=== PATIENT | female | born 1955 | race Caucasian/White ===

== ENCOUNTER 2018-04-14 13:21 | Emergency (ER) | payer SELFPAY ==
[~2018-04-14] VITALS: Ht 160 cm; Wt 89.8 kg
--- NOTE | 2018-04-14 14:12 | PHYS DOC ---
Adult General Chief Complaint Chief Complaint: LACERATION/AVULSION HPI HPI Patient is a 63 year old female who presents with right middle finger laceration. Patient states she was using a seafood preparer today when the blade somehow came apart and flew out of the seafood preparer striking her in the right middle finger. She sustained laceration to the finger. No additional injuries. She is uncertain when her last tetanus shot was. Review of Systems Review of Systems Constitutional: Denies fever Eyes: Denies change in visual acuity HENT: Denies nasal congestion Respiratory: Denies cough or shortness of breath Cardiovascular: No additional information not addressed in HPI GI: Denies abdominal pain Integument: Denies rash Neurologic: Denies headache All other systems were reviewed and found to be within normal limits, except as documented in this note. Current Medications Current Medications Current Medications Medications (Trade) Dose Ordered Sig/Daniel Start Time Stop Time Status Last Admin Dose Admin Cephalexin HCl (Keflex) 500 mg 1X ONCE 04/14/18 15:00 04/14/18 15:01 DC 04/14/18 14:57 500 MG Diphtheria/ Tetanus/Acell Pertussis (Boostrix) 0.5 ml ONCE ONCE 04/14/18 14:30 04/14/18 14:31 DC 04/14/18 14:54 0.5 ML Lidocaine HCl (Lidocaine 1% 20ml Vial) 20 ml 1X ONCE 04/14/18 14:15 04/14/18 14:16 DC 04/14/18 14:12 20 ML Allergies Allergies Allergies Coded Allergies Type Severity Reaction Last Updated Verified codeine Allergy Intermediate RASH 04/14/18 Yes latex Allergy Intermediate RASH 04/14/18 Yes Physical Exam Physical Exam Constitutional: Well developed, well nourished, no acute distress HENT: Normocephalic, atraumatic Neck: Normal range of motion Cardiovascular:Heart rate regular rhythm, no murmur Lungs & Thorax: Bilateral breath sounds clear to auscultation Skin: Warm, dry, no erythema, no rash Extremities: Laceration over distal aspect of the right middle finger. Capillary refill distally is less than 2 seconds. Sensation light touch is intact. All flexor and extensor mechanisms are also intact. Neurologic: Alert and oriented X 3 Psychologic: Affect normal Current Patient Data Vital Signs Vital Signs Date Time Temp Pulse Resp B/P (MAP) Pulse Ox O2 Delivery O2 Flow Rate FiO2 04/14/18 14:22 98.1 77 18 174/78 (110) 98 Room Air 98.1 EKG EKG [] Radiology/Procedures Radiology/Procedures [] Course & Med Decision Making Course & Med Decision Making Pertinent Labs and Imaging studies reviewed. (See chart for details) Patient is evaluated immediately on arrival to her room. She has laceration described above. Orders are placed for x-ray. Plan is to do a digital block and laceration repair. 14:40: Tiny fracture of the distal phalanx is noted on x-ray. The patient is given a dose of Keflex. She is discharged home after laceration repair. See the procedure note below. Advised to come back to the ER in 10-14 days to have sutures removed. Wound care was also discussed. The patient already has pain medications at home that she can use as needed. Tetanus booster was given in the ER. Procedure note: Laceration right middle finger. The entire finger was cleansed with iodine. 5 total milliliters of 1% lidocaine was used to provide local anesthesia via a digital block which was successful. A total of 9 simple interrupted sutures were placed using 4-0 nylon. The patient tolerated well. Dragon Disclaimer Dragon Disclaimer This electronic medical record was generated, in whole or in part, using a voice recognition dictation system. Departure Departure Disposition: 01 HOME, SELF-CARE Condition: GOOD Referrals: MARGA HESS MD (PCP) Scripts Cephalexin (KEFLEX) 500 Mg Capsule 500 MG PO QID for 10 Days, #40 CAP Prov: ABELARDO SANDHU DO 04/14/18 ABELARDO SANDHU DO Apr 14, 2018 14:11
[2018-04-14] MEDS ORDERED: LIDOCAINE 1% Multi-Dose 20 ML VIAL. INJ ONE (14:15)
[2018-04-14 14:22] VITALS: BP 174/78
[2018-04-14] MEDS ORDERED: DIPHTH,PERTUSS(ACELL),TET TOX 0.5 ML DISP.SYRIN. VAX IM ONE (14:30)
--- NOTE | 2018-04-14 14:36 | RAD ---
AP view right hand, 2 view 3rd right finger 04/14/2018 CLINICAL INDICATION: Laceration to the lateral aspect of the right 3rd digit. COMPARISON: None. FINDINGS: Tiny minimally displaced fracture at the radial aspect of the base 3rd distal phalanx. No definite intra-articular extension. Soft tissue swelling at the distal 3rd digit. IMPRESSION: Minimally displaced fracture at the base of the 3rd distal phalanx. Electronically signed by: Clement Brink MD (04/14/2018 2:33 PM) [facility]
[2018-04-14] MEDS ORDERED: CEPH-264 PO (14:55)
[2018-04-14] MEDS ORDERED: CEPHALEXIN 250 MG CAPSULE. PO ONE (15:00)
== END 2018-04-14 15:08 | disposition home or self-care (01) ==
LOC: ER 13:21
DX: S61.212A Laceration without foreign body of right middle finger without damage to nail, initial encounter (principal); Z88.5 Allergy status to narcotic agent; Z91.040 Latex allergy status; W26.8XXA Contact with other sharp object(s), not elsewhere classified, initial encounter; Y93.G3 Activity, cooking and baking; Y92.89 Other specified places as the place of occurrence of the external cause; Y99.8 Other external cause status
CPT/HCPCS: 12001; 73140; 90471; 90715; 99283

== ENCOUNTER 2019-08-03 22:49 | Inpatient (IN) | payer MEDICARE ==
[~2019-08-03] VITALS: Ht 160 cm; Wt 89.8 kg
[~2019-08-03 22:49] MED LIST: CEPH-264 PO
--- NOTE | 2019-08-03 23:42 | PHYS DOC ---
Past Medical History Past Medical History: Arthritis, Diabetes-Type II, Hypertension Past Surgical History: Tonsillectomy, Other Additional Past Surgical Histo: KNEE REPAIR Smoking Status: Never Smoker Alcohol Use: None Drug Use: None Adult General Chief Complaint Chief Complaint: WEAKNESS/GENERALIZED HPI HPI 64-year-old female with underlying history of hypertension, diabetes presents to the emergency department with slurred speech that has subsequently resolved. Patient states around 10 PM she took her insulin went to dinner with her states she had difficulty speaking with what she describes as expressive aphasia, states she was unable to facility getting words out however she knew what she wanted to say. This apparently lasted 15 minutes, symptoms resolved prior to her arrival to the emergency department. Patient denies any unilateral weakness, states speech difficulty currently. Her NIH is 0. Patient states she takes no blood thinning medications, no history of CVA. Pressures currently 200 systolically. Nothing makes her symptoms worse, nothing makes her symptoms better. Review of Systems Review of Systems Constitutional: Denies fever or chills [] Respiratory: Denies cough or shortness of breath [] Cardiovascular: No additional information not addressed in HPI [] GI: Denies abdominal pain, nausea, vomiting, bloody stools or diarrhea [] : Denies dysuria or hematuria [] Musculoskeletal: Denies back pain or joint pain [] Integument: Denies rash or skin lesions [] Neurologic: Denies headache, focal weakness or sensory changes [] All other systems were reviewed and found to be within normal limits, except as documented in this note. Allergies Allergies Allergies Coded Allergies Type Severity Reaction Last Updated Verified codeine Allergy Intermediate RASH 04/14/18 Yes latex Allergy Intermediate RASH 04/14/18 Yes Physical Exam Physical Exam Constitutional: Well developed, well nourished, no acute distress, non-toxic appearance. [] HENT: Normocephalic, atraumatic, bilateral external ears normal, oropharynx moist, no oral exudates, nose normal. [] Eyes: PERRLA, EOMI, conjunctiva normal, no discharge. [] Cardiovascular:Heart rate regular rhythm, no murmur [] Lungs & Thorax: Bilateral breath sounds clear to auscultation [] Abdomen: Bowel sounds normal, soft, no tenderness, no masses, no pulsatile masses. [] Skin: Warm, dry, no erythema, no rash. [] Back: No tenderness, no CVA tenderness. [] Extremities: No tenderness, no edema. [] Neurologic: Alert and oriented X 3, no focal deficits noted. [] Psychologic: Affect normal, judgement normal, mood normal. [] Current Patient Data Lab Values Laboratory Tests Test 08/03/19 23:29 White Blood Count 7.8 x10^3/uL (4.0-11.0) Red Blood Count 4.67 x10^6/uL (3.50-5.40) Hemoglobin 14.4 g/dL (12.0-15.5) Hematocrit 41.0 % (36.0-47.0) Mean Corpuscular Volume 88 fL (79-100) Mean Corpuscular Hemoglobin 31 pg (25-35) Mean Corpuscular Hemoglobin Concent 35 g/dL (31-37) Red Cell Distribution Width 13.3 % (11.5-14.5) Platelet Count 290 x10^3/uL (140-400) Neutrophils (%) (Auto) 60 % (31-73) Lymphocytes (%) (Auto) 29 % (24-48) Monocytes (%) (Auto) 7 % (0-9) Eosinophils (%) (Auto) 2 % (0-3) Basophils (%) (Auto) 1 % (0-3) Neutrophils # (Auto) 4.7 x10^3/uL (1.8-7.7) Lymphocytes # (Auto) 2.3 x10^3/uL (1.0-4.8) Monocytes # (Auto) 0.6 x10^3/uL (0.0-1.1) Eosinophils # (Auto) 0.2 x10^3/uL (0.0-0.7) Basophils # (Auto) 0.1 x10^3/uL (0.0-0.2) Prothrombin Time 12.9 SEC (11.7-14.0) Prothrombin Time INR 1.0 (0.8-1.1) Sodium Level 135 mmol/L (136-145) L Potassium Level 4.3 mmol/L (3.5-5.1) Chloride Level 101 mmol/L (98-107) Carbon Dioxide Level 25 mmol/L (21-32) Anion Gap 9 (6-14) Blood Urea Nitrogen 18 mg/dL (7-20) Creatinine 0.8 mg/dL (0.6-1.0) Estimated GFR (Cockcroft-Gault) 72.0 BUN/Creatinine Ratio 23 (6-20) H Glucose Level 300 mg/dL (70-99) H Calcium Level 8.7 mg/dL (8.5-10.1) Total Bilirubin 0.6 mg/dL (0.2-1.0) Aspartate Amino Transferase (AST) 26 U/L (15-37) Alanine Aminotransferase (ALT) 25 U/L (14-59) Alkaline Phosphatase 115 U/L (46-116) Total Protein 6.8 g/dL (6.4-8.2) Albumin 3.5 g/dL (3.4-5.0) Albumin/Globulin Ratio 1.1 (1.0-1.7) Laboratory Tests 08/03/19 23:29 Laboratory Tests 08/03/19 23:29 EKG EKG [] Radiology/Procedures Radiology/Procedures [facility] [address] [place] [address] IMAGING REPORT Signed PATIENT: YENY STUART ACCOUNT: [id number] : 1955 LOCATION: ER AGE: 64 SEX: F EXAM STATUS: REG ER ORD. PHYSICIAN: ISAÍAS STALLWORTH MD REASON: slurred speech PROCEDURE: CT HEAD WO CONTRAST CT brain without contrast. HISTORY: Slurred speech CT scan of brain was done without contrast. There is no intracranial hemorrhage or subdural hematoma. There is no mass or shift of the midline. Ventricles are normal in size. There is decreased density in the might white matter likely microvascular ischemic changes although there is some asymmetry more decreased density in the white matter on the left than on the right, an early white matter infarct cannot be excluded. MRI could be of benefit. IMPRESSION: 1. No intracranial hemorrhage. 2. Subtle decreased density in the frontal parietal white matter on the left compared to the right. MRI could be of benefit. PQRS Compliance Statement: One or more of the following individualized dose reduction techniques were utilized for this examination: 1. Automated exposure control 2. Adjustment of the mA and/or kV according to patient size 3. Use of iterative reconstruction technique Electronically signed by: Med Bell MD (08/04/2019 12:14 AM) [id number] DICTATED and SIGNED BY: MED BELL MD DATE: 08/04/19 0014 [] Course & Med Decision Making Course & Med Decision Making Pertinent Labs and Imaging studies reviewed. (See chart for details) []64-year-old female with underlying history of hypertension, diabetes presents to the emergency department with slurred speech that has subsequently resolved. Patient states around 10 PM she took her insulin went to dinner with her states she had difficulty speaking with what she describes as expressive aphasia, states she was unable to facility getting words out however she knew what she wanted to say. This apparently lasted 15 minutes, symptoms resolved prior to her arrival to the emergency department. Patient denies any unilateral weakness, states speech difficulty currently. Her NIH is 0. Patient states she takes no blood thinning medications, no history of CVA. Pressures currently 200 systolically. Nothing makes her symptoms worse, nothing makes her symptoms better. Labs/Imaging reviewed NIHSS 0 CT reviewed - abnormal no bleed ABCD2 Score - 5 (moderate risk) Discussed admit with patient/family Neurology consultation - likely will need MRI and further evaluation Dragon Disclaimer Dragon Disclaimer This electronic medical record was generated, in whole or in part, using a voice recognition dictation system. NIHSS Stroke Scale NIH Stroke Scale: NIH Stroke Scale Response (Comments) Value Level of Consciousness: 0 Alert/Responsive 0 LOC Questions: 0 Answers both correctly 0 LOC Commands: 0 Performs both tasks 0 Best Gaze: 0 Normal 0 Visual: 0 No visual loss 0 Facial Palsy: 0 Normal, symmetrical 0 Motor - Left Arm 0 No drift 0 Motor - Right Arm 0 No drift 0 Motor - Left Leg 0 No drift 0 Motor: Right Leg 0 No drift 0 Limb Ataxia: 0 Absent 0 Sensory: 0 No loss 0 Best Language: 0 Normal 0 Dysathria: 0 Normal 0 Extinction and Inattention: 0 Normal 0 Total 0 Departure Departure Impression: Primary Impression: TIA (transient ischemic attack) Additional Impressions: Diabetes Abnormal head CT Condition: IMPROVED Referrals: MARGA HESS MD (PCP) Problem Qualifiers Additional Impressions: Diabetes Diabetes mellitus type: type 1 Diabetes mellitus complication status: without complication Qualified Codes: E10.9 - Type 1 diabetes mellitus without complications ISAÍAS STALLWORTH MD Aug 03, 2019 23:42
[2019-08-03 23:52] LABS: BASO # 0.1 x10^3/uL (0.0-0.2); BASO % 1 % (0-3); EOS # 0.2 x10^3/uL (0.0-0.7); EOS % 2 % (0-3); HEMOGLOBIN 14.4 g/dL (12.0-15.5); LYMPH # 2.3 x10^3/uL (1.0-4.8); LYMPH % 29 % (24-48); MEAN CORPUSCULAR HEMOGLOBIN 31 pg (25-35); MEAN CORPUSCULAR HGB CONC 35 g/dL (31-37); MEAN CORPUSCULAR VOLUME 88 fL (79-100); MONO # 0.6 x10^3/uL (0.0-1.1); MONO % 7 % (0-9); NEUT # 4.7 x10^3/uL (1.8-7.7); NEUT % 60 % (31-73); PLATELET COUNT 290 x10^3/uL (140-400); RED BLOOD COUNT 4.67 x10^6/uL (3.50-5.40); RED CELL DISTRIBUTION WIDTH 13.3 % (11.5-14.5); WHITE BLOOD COUNT 7.8 x10^3/uL (4.0-11.0)
[2019-08-03 23:59] LABS: CALCIUM 8.7 mg/dL (8.5-10.1); CREATININE 0.8 mg/dL (0.6-1.0); POTASSIUM 4.3 mmol/L (3.5-5.1)
[2019-08-04 00:01] LABS: PROTHROMBIN TIME PATIENT 12.9 SEC (11.7-14.0)
[2019-08-04 00:05] LABS: ALBUMIN 3.5 g/dL (3.4-5.0); ALBUMIN/GLOBULIN RATIO 1.1 (1.0-1.7); TOTAL BILIRUBIN 0.6 mg/dL (0.2-1.0); TOTAL PROTEIN 6.8 g/dL (6.4-8.2)
--- NOTE | 2019-08-04 00:17 | RAD ---
CT brain without contrast. HISTORY: Slurred speech CT scan of brain was done without contrast. There is no intracranial hemorrhage or subdural hematoma. There is no mass or shift of the midline. Ventricles are normal in size. There is decreased density in the might white matter likely microvascular ischemic changes although there is some asymmetry more decreased density in the white matter on the left than on the right, an early white matter infarct cannot be excluded. MRI could be of benefit. IMPRESSION: 1. No intracranial hemorrhage. 2. Subtle decreased density in the frontal parietal white matter on the left compared to the right. MRI could be of benefit. PQRS Compliance Statement: One or more of the following individualized dose reduction techniques were utilized for this examination: 1. Automated exposure control 2. Adjustment of the mA and/or kV according to patient size 3. Use of iterative reconstruction technique Electronically signed by: Med Bell MD (08/04/2019 12:14 AM) [id number]
[2019-08-04] MEDS ORDERED: ONDANSETRON PF 4 MG/2 ML VIAL. IV PRN (01:45)
[2019-08-04] MEDS ORDERED: ACETAMINOPHEN 325 MG TABLET. PO PRN ×2 (01:45→08:30)
--- NOTE | 2019-08-04 02:00 | NUR ---
pt admitted via cart from ER with admission diagnosis of TIA/Abnormal head CT Scan diabetes patient alert and oriented patient stated right now she live in a car with trying to find a home use to live and take care of austitic person but the cousin asked them to leave they trying to find a home pt refused flu shot dont do it for years stated no preferred pharmacy caused she canvas whatever is the more affortable one.
[2019-08-04 03:29] VITALS: BP 173/79
[2019-08-04] MEDS ORDERED: LISI-130 PO (04:13)
[2019-08-04] MEDS ORDERED: OXYC1TAB15 PO (04:19)
[2019-08-04] MEDS ORDERED: INSU100I13 SQ (04:22)
[2019-08-04] MEDS ORDERED: INSU100V2 SQ (04:47)
[2019-08-04 07:00] VITALS: BP 173/80
[2019-08-04] MEDS ORDERED: ACETAMINOPHEN 650 MG SUPP.RECT. PR PRN (08:30)
[2019-08-04] MEDS ORDERED: IPRATRPIUM/ALBUTEROL 0.5/2.5MG 3 ML NEBU. NEB PRN (08:45)
--- NOTE | 2019-08-04 09:08 | PDOC1 ---
History and Physical Date of Admission Date of Admission 08/04/2019 Identification/Chief Complaint Chief Complaint I could not speak Source Source: Chart review History of Present Illness History of Present Illness Patient is a 64-year-old female with past medical history of diabetes who was in her usual state of health until the evening prior to her admission when while having dinner with her she had taken her usual insulin dose and was eating appropriately and she suddenly developed inability to communicate. The relates that the patient was trying to formulate words and she was unable to do so. He prompted her to go to the emergency department and he was able to load her out in the vehicle make sure her seatbelt was on and was brought to the emergency department for evaluation. On the way to the emergency department her symptoms had abated and she had a 0 INH score. Initial work-up in the ER was unremarkable. Due to her comorbidities and her ABCD score we were asked to admit the patient for TIA work-up. The patient has not had any changes to her medications recently she denies any recent illnesses no headache no blurred vision no slurred speech was reported no hemiparesis no hemiplegia no cranial nerves dysfunction were noticed either. Of note is that the patient apparently from the social standpoint of view is currently homeless with living in a vehicle with her . She woke up couple days ago with a neck discomfort but she denies fevers or chills. No sick contacts have been reported. Patient denies palpitations no shortness of breath no paroxysmal nocturnal dyspnea no angina type of symptoms no nausea vomiting diarrhea no urinary symptoms were reported either. At the time my evaluation the patient has neurological normal exam. Plan of care has been explained detail to the patient and her who is at bedside. Past Medical History Cardiovascular: HTN Endocrine: Diabetes Current Problem List Problem List Problems Medical Problems: (1) Abnormal head CT Status: Acute (2) Diabetes Status: Acute (3) TIA (transient ischemic attack) Status: Acute Current Medications Current Medications Current Medications Medications (Trade) Dose Ordered Sig/Daniel Start Time Stop Time Status Last Admin Dose Admin Acetaminophen (Tylenol Supp) 650 mg PRN Q4HRS PRN 08/04/19 08:30 Acetaminophen (Tylenol) 650 mg PRN Q6HRS PRN 08/04/19 08:30 Albuterol/ Ipratropium (Duoneb) 3 ml PRN Q4HRS PRN 08/04/19 08:45 Aspirin (Children'S Aspirin) 81 mg [id number] 08/04/19 09:00 Ondansetron HCl (Zofran) 4 mg PRN Q8HRS PRN 08/04/19 01:45 08/05/19 01:44 Allergies Allergies Allergies Coded Allergies Type Severity Reaction Last Updated Verified codeine Allergy Intermediate RASH 04/14/18 Yes latex Allergy Intermediate RASH 04/14/18 Yes ROS Review of System CONSTITUTIONAL: No fever or chills EYES: No recent changes SKIN: No rash or itching CARDIOVASCULAR: No chest pain, syncope, palpitations, or edema RESPIRATORY: No SOB or cough GASTROINTESTINAL: No nausea, vomiting or abdominal pain NEUROLOGICAL: No headaches or weakness ENDOCRINE: No cold or heat intolerance GENITOURINARY: No urgency or frequency of urination MUSCULOSKELETAL: No back pain or joint pain LYMPHATICS: No enlarged lymph nodes PSYCHIATRIC: No anxiety or depression Physical Exam Physical Exam GEN.: No apparent distress. Alert and oriented. HEENT: Head is normocephalic, atraumatic NECK: Supple. LUNGS: Clear to auscultation. HEART: RRR, S1, S2 present. Peripheral pulses intact ABDOMEN: Soft, nontender. Positive bowel sounds. EXTREMITIES: Without any cyanosis. NEUROLOGIC: Normal speech, normal tone PSYCHIATRIC: Normal affect, normal mood. SKIN: No ulcerations Vitals Vitals Vital Signs Date Time Temp Pulse Resp B/P (MAP) Pulse Ox O2 Delivery O2 Flow Rate FiO2 08/04/19 07:00 97.8 79 16 173/80 (111) 97 Room Air 97.8 Labs Labs Laboratory Tests Test 08/03/19 23:29 08/04/19 08:03 White Blood Count 7.8 x10^3/uL (4.0-11.0) Red Blood Count 4.67 x10^6/uL (3.50-5.40) Hemoglobin 14.4 g/dL (12.0-15.5) Hematocrit 41.0 % (36.0-47.0) Mean Corpuscular Volume 88 fL (79-100) Mean Corpuscular Hemoglobin 31 pg (25-35) Mean Corpuscular Hemoglobin Concent 35 g/dL (31-37) Red Cell Distribution Width 13.3 % (11.5-14.5) Platelet Count 290 x10^3/uL (140-400) Neutrophils (%) (Auto) 60 % (31-73) Lymphocytes (%) (Auto) 29 % (24-48) Monocytes (%) (Auto) 7 % (0-9) Eosinophils (%) (Auto) 2 % (0-3) Basophils (%) (Auto) 1 % (0-3) Neutrophils # (Auto) 4.7 x10^3/uL (1.8-7.7) Lymphocytes # (Auto) 2.3 x10^3/uL (1.0-4.8) Monocytes # (Auto) 0.6 x10^3/uL (0.0-1.1) Eosinophils # (Auto) 0.2 x10^3/uL (0.0-0.7) Basophils # (Auto) 0.1 x10^3/uL (0.0-0.2) Prothrombin Time 12.9 SEC (11.7-14.0) Prothromb Time International Ratio 1.0 (0.8-1.1) Sodium Level 135 mmol/L (136-145) Potassium Level 4.3 mmol/L (3.5-5.1) Chloride Level 101 mmol/L (98-107) Carbon Dioxide Level 25 mmol/L (21-32) Anion Gap 9 (6-14) Blood Urea Nitrogen 18 mg/dL (7-20) Creatinine 0.8 mg/dL (0.6-1.0) Estimated GFR (Cockcroft-Gault) 72.0 BUN/Creatinine Ratio 23 (6-20) Glucose Level 300 mg/dL (70-99) Calcium Level 8.7 mg/dL (8.5-10.1) Total Bilirubin 0.6 mg/dL (0.2-1.0) Aspartate Amino Transf (AST/SGOT) 26 U/L (15-37) Alanine Aminotransferase (ALT/SGPT) 25 U/L (14-59) Alkaline Phosphatase 115 U/L (46-116) Total Protein 6.8 g/dL (6.4-8.2) Albumin 3.5 g/dL (3.4-5.0) Albumin/Globulin Ratio 1.1 (1.0-1.7) Glucose (Fingerstick) 348 mg/dL (70-99) Laboratory Tests Test 08/03/19 23:29 08/04/19 08:03 White Blood Count 7.8 x10^3/uL (4.0-11.0) Red Blood Count 4.67 x10^6/uL (3.50-5.40) Hemoglobin 14.4 g/dL (12.0-15.5) Hematocrit 41.0 % (36.0-47.0) Mean Corpuscular Volume 88 fL (79-100) Mean Corpuscular Hemoglobin 31 pg (25-35) Mean Corpuscular Hemoglobin Concent 35 g/dL (31-37) Red Cell Distribution Width 13.3 % (11.5-14.5) Platelet Count 290 x10^3/uL (140-400) Neutrophils (%) (Auto) 60 % (31-73) Lymphocytes (%) (Auto) 29 % (24-48) Monocytes (%) (Auto) 7 % (0-9) Eosinophils (%) (Auto) 2 % (0-3) Basophils (%) (Auto) 1 % (0-3) Neutrophils # (Auto) 4.7 x10^3/uL (1.8-7.7) Lymphocytes # (Auto) 2.3 x10^3/uL (1.0-4.8) Monocytes # (Auto) 0.6 x10^3/uL (0.0-1.1) Eosinophils # (Auto) 0.2 x10^3/uL (0.0-0.7) Basophils # (Auto) 0.1 x10^3/uL (0.0-0.2) Prothrombin Time 12.9 SEC (11.7-14.0) Prothromb Time International Ratio 1.0 (0.8-1.1) Sodium Level 135 mmol/L (136-145) Potassium Level 4.3 mmol/L (3.5-5.1) Chloride Level 101 mmol/L (98-107) Carbon Dioxide Level 25 mmol/L (21-32) Anion Gap 9 (6-14) Blood Urea Nitrogen 18 mg/dL (7-20) Creatinine 0.8 mg/dL (0.6-1.0) Estimated GFR (Cockcroft-Gault) 72.0 BUN/Creatinine Ratio 23 (6-20) Glucose Level 300 mg/dL (70-99) Calcium Level 8.7 mg/dL (8.5-10.1) Total Bilirubin 0.6 mg/dL (0.2-1.0) Aspartate Amino Transf (AST/SGOT) 26 U/L (15-37) Alanine Aminotransferase (ALT/SGPT) 25 U/L (14-59) Alkaline Phosphatase 115 U/L (46-116) Total Protein 6.8 g/dL (6.4-8.2) Albumin 3.5 g/dL (3.4-5.0) Albumin/Globulin Ratio 1.1 (1.0-1.7) Glucose (Fingerstick) 348 mg/dL (70-99) VTE Prophylaxis Ordered VTE Prophylaxis Devices: No VTE Pharmacological Prophylaxi: Yes Assessment/Plan Assessment/Plan TIA with expressive aphasia reported by the patient Essential hypertension Diabetes mellitus type 2, currently uncontrolled Obesity with a BMI of 35 Plan We will check hemoglobin A1c Lipid panel Neurology consultation Aspirin Resume home medications Further recommendations based on the clinical course DVT prophylaxis with Lovenox MONTSE LUNA MD Aug 04, 2019 09:08
--- NOTE | 2019-08-04 09:26 | RAD ---
EXAM: Carotid Doppler sonogram. HISTORY: Transient ischemic attack. Aphasia. TECHNIQUE: Elder scale and color Doppler sonographic evaluation of the neck with spectral waveform analysis was performed and static images are submitted for review. FINDINGS: There is mild atherosclerotic plaque within the carotid bifurcations. The peak systolic velocity within the right common carotid artery is 125 cm/sec. The peak systolic velocity within the right internal carotid artery is 107 cm/sec and the end diastolic velocity within the right internal carotid artery is 34 cm/sec. The right ICA/CCA ratio is 1.2. The peak systolic velocity within the left common carotid artery is 102 cm/sec. The peak systolic velocity within the left internal carotid artery is 112 cm/sec and the end diastolic velocity within the left internal carotid artery is 35 cm/sec. The left ICA/CCA ratio is 1.1. There is normal antegrade flow within both vertebral arteries. IMPRESSION: No Doppler evidence of hemodynamically significant stenosis involving the internal carotid arteries or vertebral arteries. PQRS Compliance Statement - Stenosis calculations for CT, MR and conventional angiography are based upon measurement of the distal ICA diameter in accordance with the NASCET methodology. Stenosis calculations for carotid ultrasound studies are derived from validated velocity criteria which are known to correlate with the NASCET methodology. Electronically signed by: Sandrita Klein MD (08/04/2019 9:23 AM) [id number]
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
[2019-08-04 10:35] LABS: CHOLESTEROL/HDL RATIO 7.2
[2019-08-04 11:00] VITALS: BP 140/80
--- NOTE | 2019-08-04 12:06 | NUR ---
SS following for discharge planning. SS reviewed pt chart. Pt is from home with spouse and is currently on room air. PT/OT ordered. SS will continue to follow for discharge planning.
[2019-08-04] MEDS ORDERED: oxyCODONE/APAP 5/325 1 TAB TABLET PO PRN (12:30)
[2019-08-04] MEDS ORDERED: DEXTROSE 50% 25 GM / 50ML DISP.SYRIN. IV PRN (12:30)
[2019-08-04] MEDS ORDERED: INSULIN LISPRO 100 UNIT/ML 3ML VIAL for OP,RR ONLY. SQ PRN (12:30)
--- NOTE | 2019-08-04 13:17 | RAD ---
EXAMINATION: Magnetic resonance imaging (MRI) of the brain and brainstem without contrast 08/04/2019 8:25 AM HISTORY: TIA, aphasia TECHNIQUE: Multiplanar multi-weighted MRI of the brain and brainstem was performed without intravenous contrast using the general brain protocol. COMPARISON: CT head 08/03/2019. FINDINGS: The scalp and calvarium are normal. The superior sagittal sinus demonstrates normal venous flow. The corpus callosum is normal in shape and signal intensity. The posterior fossa is unremarkable. The pituitary and sella are normal. The brainstem and craniocervical junction are unremarkable. There are T2/FLAIR signal hyperintense foci in the periventricular and subcortical white matter most suggestive of mild chronic small vessel ischemic changes. Diffusion weighted images reveal no hyperintensities to suggest acute cerebral infarction. The susceptibility weighted sequences reveal no evidence of acute or chronic hemorrhage. The ventricles are normal in size and position without evidence of hydrocephalus. The paranasal sinuses are normal. The visualized portions of the mastoids are unremarkable. The orbits appear normal. Normal flow voids are demonstrated in the carotid arteries and basilar artery. IMPRESSION: No evidence for acute or subacute ischemia. There are T2/FLAIR signal hyperintense foci in the periventricular and subcortical white matter most suggestive of mild chronic small vessel ischemic changes. Electronically signed by: Cheyanne Anders MD (08/04/2019 1:13 PM) [id number]
[2019-08-04 15:00] VITALS: BP 124/85
[2019-08-04] MEDS ORDERED: predniSONE 20 MG TABLET PO ONE (15:15)
[2019-08-04] MEDS ORDERED: DIPHENHYDRAMINE/ZINC ACETATE 2%/0.1% TOPICAL CREAM 28GM TUBE. TP PRN ×2 (15:15→15:30)
[2019-08-04] MEDS: ASPIRIN CHEWABLE 81 MG TABLET. PO SCH (15:37)
[2019-08-04] MEDS: LISINOPRIL 20 MG TABLET PO SCH (15:37)
[2019-08-04] MEDS: INSULIN LISPRO 300 UNITS/3 ML VIAL. SQ SCH (15:43)
--- NOTE | 2019-08-04 18:38 | CARD ---
MR#: [id number] Date of Study: 08/04/2019 Ordering Physician: THOMAS MEADOWS, Referring Physician: THOMAS MEADOWS, Tech: Citlalli Smith APPROVED REPORT EXAM: Two-dimensional and M-mode echocardiogram with Doppler and color Doppler. Other Information Quality : AverageHR: 76bpm INDICATION CVA/TIA RISK FACTORS Hypertension Diabetes 2D DIMENSIONS Left Atrium(2D)4.0 (1.6-4.0cm)IVSd1.2 (0.7-1.1cm) Aortic Root(2D)3.0 (2.0-3.7cm)LVDd4.3 (3.9-5.9cm) LVOT Diameter2.0 (1.8-2.4cm)PWd1.3 (0.7-1.1cm) LVDs2.8 (2.5-4.0cm)FS (%) 34.2 % SV51.5 ml Aortic Valve AoV Peak Matthew.152.7cm/sAoV VTI30.8cm AO Peak GR.9.3mmHgLVOT VTI 20.18cm AO Mean GR.6mmHgAI P 1/2 [id number] Mitral Valve MV E Ppqpkmzd57.2cm/sMV E Peak Gr.6mmHg MV DECEL [id number] A Kdeevaoi932.6cm/s MV E Mean Gr.2mmHgE/A Ratio0.6 TDI Lateral E' P. V5.73cm/sMedial E' P. V4.89cm/s E/Lateral E'10.7E/Medial E'12.5 Tricuspid Valve TR P. Hpktbqmn330ft/sRAP [id number] TR Peak Gr.84beXzQUIE82kmTh Pulmonary Vein S1 Bhsthkqh79.2cm/sS2 Vkxjxgtt31.20cm/s D2 Bcigvsgj73.2cm/sPVa sxxjpbdr940mqxw LEFT VENTRICLE The left ventricle is normal size. There is mild concentric left ventricular hypertrophy. The left ve ntricular systolic function is normal and the ejection fraction is within normal range. The Ejection Fraction is 55-60%. There is normal LV segmental wall motion. Transmitral Doppler flow pattern is Gra de I-abnormal relaxation pattern. RIGHT VENTRICLE The right ventricle is normal size. There is normal right ventricular wall thickness. The right ventr icular systolic function is normal. ATRIA The left atrium size is normal. The right atrium size is normal. The interatrial septum is intact wit h no evidence for an atrial septal defect or patent foramen ovale as noted on 2-D or Doppler imaging. AORTIC VALVE The aortic valve is thickened but opens well. Doppler and Color Flow revealed trace to mild aortic re gurgitation. There is no significant aortic valvular stenosis. MITRAL VALVE The mitral valve is normal in structure and function. There is no evidence of mitral valve prolapse. There is no mitral valve stenosis. Doppler and Color-flow revealed trace mitral regurgitation. TRICUSPID VALVE The tricuspid valve is normal in structure and function. Doppler and Color Flow revealed trace tricus pid regurgitation with an estimated PAP of 20 mmHg. There is no tricuspid valve stenosis. PULMONIC VALVE The pulmonic valve is not well visualized. Doppler and Color Flow revealed trace pulmonic valvular re gurgitation. GREAT VESSELS The aortic root is normal in size. The IVC is normal in size and collapses >50% with inspiration. PERICARDIAL EFFUSION There is no evidence of significant pericardial effusion. Critical Notification Critical Value: No <Conclusion> The left ventricle is normal size. The left ventricular systolic function is normal and the ejection fraction is within normal range. The Ejection Fraction is 55-60%. There is mild concentric left ventricular hypertrophy. Doppler and Color Flow revealed trace to mild aortic regurgitation. There is no significant aortic valvular stenosis. Doppler and Color-flow revealed trace mitral regurgitation. Doppler and Color Flow revealed trace tricuspid regurgitation with an estimated PAP of 20 mmHg. Signed by : Lorne Miller MD Electronically Approved : 08/04/2019 18:37:32
[2019-08-04 19:35] VITALS: BP 156/72
[2019-08-04] MEDS ORDERED: INSULIN GLARGINE SYRINGE. SQ SCH (21:00)
[2019-08-04 23:08] LABS: HEMOGLOBIN A1C 9.9 % (4.8-5.6)
[2019-08-04 23:20] VITALS: BP 154/79
[2019-08-05 07:35] VITALS: BP 158/77
[2019-08-05] MEDS: INSULIN LISPRO 300 UNITS/3 ML VIAL. SQ SCH ×2 (08:00→12:00)
[2019-08-05] MEDS: ASPIRIN CHEWABLE 81 MG TABLET. PO SCH (08:00)
[2019-08-05] MEDS: LISINOPRIL 20 MG TABLET PO SCH (09:00)
[2019-08-05 11:17] VITALS: BP 176/60
[2019-08-05] MEDS ORDERED: ASPI-630 PO (11:49)
--- NOTE | 2019-08-05 11:55 | PDOC3 ---
Discharge Summary Visit Information Date of Admission: Aug 04, 2019 Date of Discharge: Aug 05, 2019 Admitting Diagnosis Comment: TIA with expressive aphasia reported by the patient Essential hypertension Diabetes mellitus type 2, currently uncontrolled Obesity with a BMI of 35 Final Diagnosis Transient ischemic attack symptoms, most likely representing hypertensive encephalopathy. Essential hypertension Diabetes mellitus type 2, currently uncontrolled Obesity with a BMI of 35 Brief Hospital Course Allergies Allergies Coded Allergies Type Severity Reaction Last Updated Verified codeine Allergy Intermediate RASH 04/14/18 Yes latex Allergy Intermediate RASH 04/14/18 Yes Vital Signs Vital Signs Date Time Temp Pulse Resp B/P (MAP) Pulse Ox O2 Delivery O2 Flow Rate FiO2 08/05/19 11:17 98.8 85 18 176/60 (98) 97 Room Air 98.8 Lab Results Laboratory Tests Test 08/03/19 23:29 08/04/19 08:03 08/04/19 09:20 08/04/19 12:15 White Blood Count 7.8 x10^3/uL (4.0-11.0) Red Blood Count 4.67 x10^6/uL (3.50-5.40) Hemoglobin 14.4 g/dL (12.0-15.5) Hematocrit 41.0 % (36.0-47.0) Mean Corpuscular Volume 88 fL (79-100) Mean Corpuscular Hemoglobin 31 pg (25-35) Mean Corpuscular Hemoglobin Concent 35 g/dL (31-37) Red Cell Distribution Width 13.3 % (11.5-14.5) Platelet Count 290 x10^3/uL (140-400) Neutrophils (%) (Auto) 60 % (31-73) Lymphocytes (%) (Auto) 29 % (24-48) Monocytes (%) (Auto) 7 % (0-9) Eosinophils (%) (Auto) 2 % (0-3) Basophils (%) (Auto) 1 % (0-3) Neutrophils # (Auto) 4.7 x10^3/uL (1.8-7.7) Lymphocytes # (Auto) 2.3 x10^3/uL (1.0-4.8) Monocytes # (Auto) 0.6 x10^3/uL (0.0-1.1) Eosinophils # (Auto) 0.2 x10^3/uL (0.0-0.7) Basophils # (Auto) 0.1 x10^3/uL (0.0-0.2) Prothrombin Time 12.9 SEC (11.7-14.0) Prothromb Time International Ratio 1.0 (0.8-1.1) Sodium Level 135 mmol/L (136-145) Potassium Level 4.3 mmol/L (3.5-5.1) Chloride Level 101 mmol/L (98-107) Carbon Dioxide Level 25 mmol/L (21-32) Anion Gap 9 (6-14) Blood Urea Nitrogen 18 mg/dL (7-20) Creatinine 0.8 mg/dL (0.6-1.0) Estimated GFR (Cockcroft-Gault) 72.0 BUN/Creatinine Ratio 23 (6-20) Glucose Level 300 mg/dL (70-99) Calcium Level 8.7 mg/dL (8.5-10.1) Total Bilirubin 0.6 mg/dL (0.2-1.0) Aspartate Amino Transf (AST/SGOT) 26 U/L (15-37) Alanine Aminotransferase (ALT/SGPT) 25 U/L (14-59) Alkaline Phosphatase 115 U/L (46-116) Total Protein 6.8 g/dL (6.4-8.2) Albumin 3.5 g/dL (3.4-5.0) Albumin/Globulin Ratio 1.1 (1.0-1.7) Glucose (Fingerstick) 348 mg/dL (70-99) 281 mg/dL (70-99) Hemoglobin A1c 9.9 % (4.8-5.6) Triglycerides Level 183 mg/dL (0-150) Cholesterol Level 187 mg/dL (0-200) LDL Cholesterol, Calculated 124 mg/dL (0-100) VLDL Cholesterol, Calculated 37 mg/dL (0-40) Non-HDL Cholesterol Calculated 161 mg/dL (0-129) HDL Cholesterol 26 mg/dL (40-60) Cholesterol/HDL Ratio 7.2 Test 08/04/19 15:32 08/04/19 21:19 08/05/19 07:16 08/05/19 10:58 Glucose (Fingerstick) 202 mg/dL (70-99) 264 mg/dL (70-99) 204 mg/dL (70-99) 201 mg/dL (70-99) Laboratory Tests Test 08/04/19 12:15 08/04/19 15:32 08/04/19 21:19 08/05/19 07:16 Glucose (Fingerstick) 281 mg/dL (70-99) 202 mg/dL (70-99) 264 mg/dL (70-99) 204 mg/dL (70-99) Test 08/05/19 10:58 Glucose (Fingerstick) 201 mg/dL (70-99) Brief Hospital Course Patient is a 64-year-old female with past medical history of diabetes who was in her usual state of health until the evening prior to her admission when while having dinner with her she had taken her usual insulin dose and was eating appropriately and she suddenly developed inability to communicate. The relates that the patient was trying to formulate words and she was unable to do so. He prompted her to go to the emergency department and he was able to load her out in the vehicle make sure her seatbelt was on and was brought to the emergency department for evaluation. On the way to the emergency department her symptoms had abated and she had a 0 INH score. Initial work-up in the ER was unremarkable. Due to her comorbidities and her ABCD score we were asked to admit the patient for TIA work-up. The patient has not had any changes to her medications recently she denies any recent illnesses no headache no blurred vision no slurred speech was reported no hemiparesis no hemiplegia no cranial nerves dysfunction were noticed either. Of note is that the patient apparently from the social standpoint of view is currently homeless with living in a vehicle with her . She woke up couple days ago with a neck discomfort but she denies fevers or chills. No sick contacts have been reported. Patient denies palpitations no shortness of breath no paroxysmal nocturnal dyspnea no angina type of symptoms no nausea vomiting diarrhea no urinary symptoms were reported either. At the time my evaluation the patient has neurological normal exam. Plan of care has been explained detail to the patient and her who is at bedside. Patient was seen in consultation by neurology, MRI was ordered. Patient did not present neurological deficits during her hospital stay. Results of MRI below. GEN.: No apparent distress. Alert and oriented. HEENT: Head is normocephalic, atraumatic NECK: Supple. LUNGS: Clear to auscultation. HEART: RRR, S1, S2 present. Peripheral pulses intact ABDOMEN: Soft, nontender. Positive bowel sounds. EXTREMITIES: Without any cyanosis. NEUROLOGIC: Normal speech, normal tone PSYCHIATRIC: Normal affect, normal mood. SKIN: No ulcerations Assessment Assessment IMAGING REPORT Signed PATIENT: YENY STUART ACCOUNT: [id number] : 1955 LOCATION: [facility] AGE: 64 SEX: F EXAM STATUS: ADM IN ORD. PHYSICIAN: THOMAS MEADOWS MD REASON: TIA, aphasia PROCEDURE: BRAIN W/O CONTRAST EXAMINATION: Magnetic resonance imaging (MRI) of the brain and brainstem without contrast 08/04/2019 8:25 AM HISTORY: TIA, aphasia TECHNIQUE: Multiplanar multi-weighted MRI of the brain and brainstem was performed without intravenous contrast using the general brain protocol. COMPARISON: CT head 08/03/2019. FINDINGS: The scalp and calvarium are normal. The superior sagittal sinus demonstrates normal venous flow. The corpus callosum is normal in shape and signal intensity. The posterior fossa is unremarkable. The pituitary and sella are normal. The brainstem and craniocervical junction are unremarkable. There are T2/FLAIR signal hyperintense foci in the periventricular and subcortical white matter most suggestive of mild chronic small vessel ischemic changes. Diffusion weighted images reveal no hyperintensities to suggest acute cerebral infarction. The susceptibility weighted sequences reveal no evidence of acute or chronic hemorrhage. The ventricles are normal in size and position without evidence of hydrocephalus. The paranasal sinuses are normal. The visualized portions of the mastoids are unremarkable. The orbits appear normal. Normal flow voids are demonstrated in the carotid arteries and basilar artery. IMPRESSION: No evidence for acute or subacute ischemia. There are T2/FLAIR signal hyperintense foci in the periventricular and subcortical white matter most suggestive of mild chronic small vessel ischemic changes. Discharge Information Condition at Discharge: Improved Follow Up: Weeks Disposition/Orders: D/C to Home Scheduled Aspirin (Aspirin) 81 Mg Tab.chew, 81 MG PO DAILYWBKFT for TIA for 30 Days, #30 Prescribed by: MONTSE LUNA MD on 08/05/19 1149 Insulin Glargine,Hum.rec.anlog (Lantus Solostar) 100 Unit/1 Ml Insuln.pen, 32 UNIT SQ QHS for fot high blood sugar, #15 Ref 3 (Reported) Entered as Reported by: DB MORGAN on 08/04/19421 Last Taken: 32 units @ HS on Unknown Date & Time Last Action: Converted on 08/04/191222 by JANUSZ LLOYD RN Lisinopril (Lisinopril) 40 Mg Tablet, 40 MG PO DAILY for FOR HYPERTENSION, #30 Ref 0 (Reported) Entered as Reported by: DB MORGAN on 08/04/19412 Last Taken: 40mg daily on Unknown Date & Time Last Action: Continued on 08/04/191222 by JANUSZ LLOYD RN Scheduled PRN Insulin Lispro (Humalog) 100 Unit/1 Ml Vial, 100 UNIT SQ SSI PRN for elevated bg, (Reported) sliding scale for bg 180-200 = 6 units 201-225 = 8 units 226-250 = 11 units 251-275 = 13 units 276-300 = 15 units 301-350 = 18 units 351-400 = 22 units Entered as Reported by: FABIAN TESFAYE on 08/04/19446 Last Taken: Unknown Dose on Unknown Date & Time Last Action: Continued on 08/04/191222 by JANUSZ LOLYD RN Oxycodone/Apap 5-325 (Percocet 5-325 Mg Tablet ) 1 Each Tablet, 1 TAB PO PRN Q6HRS PRN for PAIN, Ref 0 (Reported) Entered as Reported by: DB MORGAN on 08/04/19418 Last Taken: 5m on Unknown Date & Time Last Action: Continued on 08/04/191222 by JANUSZ LLOYD RN Discontinued Medications Cephalexin (Keflex) 500 Mg Capsule, 500 MG PO QID for 10 Days, #40 Prescribed by: ABELARDO SANDHU D.O. on 04/14/18 1455 MONTSE LUNA MD Aug 05, 2019 11:55
[2019-08-05 12:21] LABS: ALBUMIN 3.5 g/dL (3.4-5.0); ALBUMIN/GLOBULIN RATIO 1.1 (1.0-1.7); CALCIUM 9.1 mg/dL (8.5-10.1); CREATININE 0.8 mg/dL (0.6-1.0); POTASSIUM 3.9 mmol/L (3.5-5.1); TOTAL BILIRUBIN 0.7 mg/dL (0.2-1.0); TOTAL PROTEIN 6.8 g/dL (6.4-8.2)
[2019-08-05 12:48] LABS: BASO # 0.1 x10^3/uL (0.0-0.2); BASO % 1 % (0-3); EOS # 0.1 x10^3/uL (0.0-0.7); EOS % 1 % (0-3); HEMATOCRIT 41.3 % (36.0-47.0); HEMOGLOBIN 14.1 g/dL (12.0-15.5); LYMPH # 2.4 x10^3/uL (1.0-4.8); LYMPH % 25 % (24-48); MEAN CORPUSCULAR HEMOGLOBIN 30 pg (25-35); MEAN CORPUSCULAR HGB CONC 34 g/dL (31-37); MEAN CORPUSCULAR VOLUME 89 fL (79-100); MONO # 0.6 x10^3/uL (0.0-1.1); MONO % 6 % (0-9); NEUT # 6.3 x10^3/uL (1.8-7.7); NEUT % 67 % (31-73); PLATELET COUNT 280 x10^3/uL (140-400); RED BLOOD COUNT 4.63 x10^6/uL (3.50-5.40); RED CELL DISTRIBUTION WIDTH 13.5 % (11.5-14.5); WHITE BLOOD COUNT 9.4 x10^3/uL (4.0-11.0)
--- NOTE | 2019-08-05 12:53 | NUR ---
pt being discharged home today with self care. Per Dr Redding, I am calling in a script for an Albuterol inhaler to the [facility] pharm at [address] [place] [address]. she is to see her PCP within 2 weeks of discharge for her high cholesterol. Lemuel Zepeda RN
== END 2019-08-05 13:05 | disposition home or self-care (01) | DRG 69 ==
LOC: ER 22:49 → 6 SOUTH 08-04 01:14
PROVIDERS: ADMIT Internal Medicine; ATTEND Internal Medicine
DX: G45.9 Transient cerebral ischemic attack, unspecified (principal); I67.4 Hypertensive encephalopathy; R47.01 Aphasia; E11.9 Type 2 diabetes mellitus without complications; E66.9 Obesity, unspecified; I10 Essential (primary) hypertension; J45.909 Unspecified asthma, uncomplicated; Z59.0 Homelessness; Z68.35 Body mass index [BMI] 35.0-35.9, adult; M19.90 Unspecified osteoarthritis, unspecified site; Z87.440 Personal history of urinary (tract) infections; Z90.49 Acquired absence of other specified parts of digestive tract; Z79.899 Other long term (current) drug therapy
CPT/HCPCS: 36415; 70450; 70551; 80053; 80061; 82962; 83036; 85025; 85610; 93306; 93880; 94640; 94760; J1815; J7512; 92610; G0378